=== PATIENT | female | born 1955 | race Caucasian/White ===

== ENCOUNTER → 2020-05-05 14:54 | Outpatient (CLI) | payer BC, SELFPAY ==
--- NOTE | ~2020-05-05 | MR_ITS ---
EXAMINATION: MR lumbar spine wo con DATE: 05/05/2020 16:03 INDICATION: Low back pain. TECHNIQUE: Magnetic resonance imaging (MRI) of the lumbar spine was performed without intravenous con trast. Sequences included sagittal T2-weighted FSE, sagittal T2-weighted FS FSE, sagittal T1-weighted FSE, and axial T2-weighted FSE. COMPARISON: None FINDINGS: Bone alignment is normal. Vertebral body heights are normal. There is mildly decreased disc height at T12-L1 with endplate remodeling. The distal spinal cord signal intensity is normal. The co nus medullaris is at L1. There are Tarlov cysts in the sacrum. The following disc levels are specific ally discussed: L1-L2: The disc does not extend beyond the endplate margin. There is no facet joint osteoarthritis. T here is no neural foraminal stenosis. There is no central canal stenosis. L2-L3: The disc does not extend beyond the endplate margin. There is mild bilateral facet joint osteo arthritis. There is no neural foraminal stenosis. There is no central canal stenosis. L3-L4: There is a left foraminal protrusion. There is severe right and moderate left facet joint oste oarthritis. There is mild bilateral neural foraminal stenosis. There is no central canal stenosis. L4-L5: The disc is bulging. There is severe bilateral facet joint osteoarthritis. There is mild bilat eral neural foraminal stenosis. There is mild central canal stenosis. L5-S1: The disc is bulging. There is severe bilateral facet joint osteoarthritis. There is mild bilat eral neural foraminal stenosis. There is no central canal stenosis. IMPRESSION: 1. Mild lumbar spondylosis. Reviewed, dictated and finalized at location A. 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 Mild lumbar spondylosis.
== END ==
PROVIDERS: Visit Provider Nurse Practitioner Family
DX: M47.896 Other spondylosis, lumbar region (principal)
CPT/HCPCS: 72148

== ENCOUNTER → 2020-08-12 15:56 | Outpatient (CLI) | payer BC, SELFPAY ==
--- NOTE | ~2020-08-12 | XR_ITS ---
XR lumbar spine min 4V 08/12/2020 16:35 Indication: Low back pain Procedure: 6 views of the lumbar spine including flexion and extension Comparison: No prior studies for comparison. Findings: There is advanced multilevel facet hypertrophy at L3-4, L4-5 and L5-S1. There is disc narro wing at these levels as well. There is mild wedge-shaped appearance to T12, likely developmental or c hronic. Pedicles intact. Sacral foramen are symmetric. No significant alteration of alignment with fl exion/extension. Impression: 1: Moderate lumbar spondylosis. Reviewed, dictated and finalized at location A. 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
== END ==
PROVIDERS: PCP Nurse Practitioner Family; Visit Provider Neurological Surgery
DX: M46.1 Sacroiliitis, not elsewhere classified (principal); M47.896 Other spondylosis, lumbar region
CPT/HCPCS: 72110

== ENCOUNTER → 2021-06-09 13:43 | Outpatient (CLI) | payer BC, SELFPAY ==
--- NOTE | ~2021-06-09 | XR_ITS ---
XR lumbar spine min 4V DATE: 06/09/2021 14:13 INDICATION: Right sacroiliac inflammation, pain TECHNIQUE: AP, lateral, flexion and extension lateral and coned lateral lumbosacral standing views COMPARISON: 08/22/2020 lumbar spine FINDINGS: Diffuse osteopenia. There is prominent degenerative spurring in the lower thoracic spine. T here is mild degenerative spurring of the lumbar spine. Lumbar interspaces are relatively preserved. There is degenerative change at the apophyseal joints particularly L4-5 and L5-S1 with slight anterol isthesis at each of these levels, stable in flexion, extension and neutral. No fracture or bone destruction is evident. The included lower thoracic and lumbar pedicles are intact. The sacroiliac joints are unremarkable ex cept for degenerative change. IMPRESSION: Diffuse osteopenia Degenerative spurring of lower thoracic spine and to a lesser extent lumbar spine Degenerative change at the apophyseal joints at L4-5 and L5-S1 in particular, with associated minimal grade 1 anterolisthesis at L4-5 and L5-S1 Reviewed, dictated and finalized at location A. DUMPER IMPRESSION: Diffuse osteopenia Degenerative spurring of lower thoracic spine and to a lesser extent lumbar spi ne Degenerative change at the apophyseal joints at L4-5 and L5-S1 in particular, w ith associated minimal grade 1 anterolisthesis at L4-5 and L5-S1
== END ==
PROVIDERS: PCP Hospitalist; Visit Provider Neurological Surgery
DX: M46.1 Sacroiliitis, not elsewhere classified (principal); M47.817 Spondylosis without myelopathy or radiculopathy, lumbosacral region; M43.17 Spondylolisthesis, lumbosacral region
CPT/HCPCS: 72110